=== PATIENT | female | born 1930 | race Caucasian/White ===

== ENCOUNTER 2018-02-09 12:59 | Inpatient (IN) | payer MEDICARE, OTHER ==
[~2018-02-09] VITALS: Ht 160 cm; Wt 80.3 kg
[2018-02-09] MEDS ORDERED: ASPIR 8181 MG PO (13:33)
[2018-02-09] MEDS ORDERED: ZANTAC 150MG T150 MG PO (13:36)
[2018-02-09] MEDS ORDERED: LIPITOR10 MG PO (13:37)
[2018-02-09] MEDS ORDERED: LASIX 40 MG TAB40 M2 PO (13:37)
[2018-02-09] MEDS ORDERED: SYNTHROID112 MC1 PO (13:38)
[2018-02-09] MEDS ORDERED: COZAAR 25 MG TA25 M1 PO (13:38)
[2018-02-09] MEDS ORDERED: TOPROL XL100 MG PO (13:39)
[2018-02-09] MEDS ORDERED: KLOR-CON 1010 MEQ PO (13:39)
[2018-02-09] MEDS ORDERED: XARELTO15 MG PO (13:40)
[2018-02-09 14:42] VITALS: BP 154/59
--- NOTE | 2018-02-09 19:27 | NUR ---
PATIENT ADMITTED TO UNIT FROM [facility], PATIENT ALERT/ORIENTED, UP WITH STANDBY ASSIST, NO COMPLAINTS OF PAIN THIS SHIFT, ORIENTED TO UNIT/REHAB PROCEDURES, ALL QUESTIONS ANSWERED AND PLAN OF CARE INITITATED
[2018-02-09 20:00] VITALS: BP 114/45
--- NOTE | 2018-02-10 05:17 | NUR ---
ASSUMED PT CARE AT 1930. PT ALERT AND ORIENTED X4, POLITE AND COOPERATIVE WITH CARES. PT UP WITH MIN ASSIST WITH GAIT BELT TO TOILET TO VOID X2. PT WITH SLIGHT LEFT SIDE WEAKNESS. PER PT HER LEFT THUMB IS NUMB BUT IS IMPROVING. PT DENIES PAIN. USES CALL LIGHT APPROPRIATELY. CALL LIGHT AND FREQUENTLY USED ITEMS WITHIN REACH. HOURLY ROUNDING IN PROGRESS, WILL CONTINUE TO MONITOR.
[2018-02-10 05:19] LABS: HEMATOCRIT 42.7 % (37.0-47.0); MCH 32.1 pg (26.0-34.0); MCHC 32.9 g/dL (28.0-37.0); MCV 97.7 fL (80.0-100.0); MPV 10.4 fl. (7.2-11.1); RBC 4.37 mil/uL (4.20-5.00); RDW-CV 13.2 % (10.5-14.5); WBC 8.4 thou/uL (4.0-11.0)
[2018-02-10 05:29] LABS: CALCIUM 8.9 mg/dL (8.5-10.1); CREATININE 1.2 mg/dL (0.6-1.3); POTASSIUM 4.4 mmol/L (3.5-5.1)
[2018-02-10 08:13] VITALS: BP 140/55
--- NOTE | 2018-02-10 12:59 | NUR ---
Nutrition: Pt admitted to rehab s/p CVA. H/o DM, afib, HF. Wt: 173#. Eating 100% Heart Healthy diet. Meds/labs noted. Low nutrition risk. Will follow weekly.
--- NOTE | 2018-02-10 15:35 | NUR ---
ASSUMED CARE AT 0730. ALERT ORIENTED PLEASANT COOPERATIVE. HX OF CVA L SIDE WEAKNESS VERY MINIMAL. TRANSFERS WITH GAIT BELT WALKER AND AMBULATES TO BR TO VOID AND HAD A BM ABLE TO DO HYGEINE AND CLOTHING ADJUSTMENTS USING CALL LIGHT APPROPRIATELY FOR ASSIST. FEEDS SELF APPETITE GOOD TAKES MEDS WITHOUT DIFFICULTY. DENIES PAIN OR CONCERNS. PARTICIPATING IN THERAPIES THROUGHOUT THE DAY.
--- NOTE | 2018-02-10 17:00 | NUR ---
SW met with pt to complete initial assessment, introduce self, and SW role on inpt rehab unit. Pt alert and oriented. Pt lives at home alone with a grandaughter who lives nearby. Pt has a walker and a cane. Pt does not have any history of services. Pt PCP Dr Renan Costa. SW to continue to follow to assist with safe dc planning.
[2018-02-10 19:00] VITALS: BP 123/59
--- NOTE | 2018-02-11 05:16 | NUR ---
ASSUMED PT CARE AT 1930. PT ALERT AND ORIENTED X4, POLITE AND COOPERATIVE WITH CARES. PT SITTING UP IN RECLINER TALKING TO VISITORS AT SHIFT CHANGE. HX OF CVA L SIDE WEAKNESS. MINIMAL WEAKNESS. DENIES PAIN. PT UP WITH GAIT BELT AND WALKER, AMBULATES TO BATHROOM TO VOID WITHOUT DIFFICULTY. PT DOES ALL OWN CARES AND CLOTHING ADJUSTMENTS. PT SLEPT WELL OVERNIGHT, UP TWICE TO VOID. PT FAMILY AT DESK INQUIRING ABOUT SNACKS FOR PT. SNACKS OFFERED PT SEVERAL TIMES BUT SHE DECLINED. USES CALL LIGHT APPROPRIATELY. CALL LIGHT AND FREQUENTLY USED ITEMS WITHIN REACH. HOURLY ROUNDING IN PROGRESS, WILL CONTINUE TO MONITOR.
[2018-02-11 08:02] VITALS: BP 129/49
[2018-02-11 09:12] VITALS: BP 129/49
--- NOTE | 2018-02-11 18:00 | NUR ---
ASSUMED CARE AT 0730 PATIENT ALERT/ORIENTED, NO COMPLAINTS OF PAIN THIS SHIFT, UP WITH ASSIST OF ONE AND WALKER/GAIT BELT, PARTICIPATED IN ALL THERPAIES TODAY, TO DINING ROOM FOR MEALS, BED/CHAIR ALARMS IN PLACE, CALL LIGHT IN REACH, HOURLY ROUNDING COMPLETED.
[2018-02-11 20:00] VITALS: BP 118/59
--- NOTE | 2018-02-12 07:31 | NUR ---
Alert and oriented x 4. She has no deficit observed, except some generalized weakness/fatigue. Pulses are equal and sales executive insurance strength equal bilat. No edema observed. Vitals are stable and lungs clear to ausclutation. She walks well with stand by assist and walker to the bathroom. She voided x 2. She has slept well.
[2018-02-12 08:05] VITALS: BP 136/58
--- NOTE | 2018-02-12 16:47 | NUR ---
ASSUMED CARE AT 0730 PATIENT ALERT/ORIENTED, NO COMPLAINTS OF PAIN THIS SHIFT, UP WITH ASSIST OF ONE AND WALKER/GAIT BELT. TO DINING ROOM FOR MEALS. FAMILY FRIENDS VISITING TODAY, BED/CHAIR ALARMS IN PLACE, CALL LIGHT IN REACH, HOURLY ROUNDING COMPLETED.
[2018-02-12 19:54] VITALS: BP 144/45
--- NOTE | 2018-02-13 04:48 | NUR ---
Alert and oriented x 4. Up with min assist with gaitbelt and walker. once she is up she is supervisionwith ambulation. She does say she has some slight weakness in her left hand due to CVA. Vitals are stable, lungs are clear. She denies pain or discomfort. She has slept well.
[2018-02-13 07:31] VITALS: BP 121/59
--- NOTE | 2018-02-13 14:45 | NUR ---
ASSUMED CARE AT 0730. ALERT ORIENTED PLEASANT COOPERATIVE. HX OF CVA L SIDE WEAKNESS. TRANSFERS WITH SBA G BELT WALKER AND AMBULATES TO BR ABLE TO DO HYGEINE AND CLOTHING ADJUSTMENTS. USING CALL LIGHT APPROPRIATELY FOR ASSIST. FEEDS SELF AND TAKES MEDS WITHOUT DIFFICULTY. DENIES PAIN OR CONCERNS. PARTICPATING IN THERAPIES TODAY TO DR FOR MEALS. MOVED TO ROOM 330 WITH BELONGINGS. ORIENTED TO ROOM AND CALL LIGHT.
[2018-02-13 20:00] VITALS: BP 128/61
--- NOTE | 2018-02-14 06:13 | NUR ---
ASSUMED CARES AT 1920. ALERT AND ORIENTED. PLEASANT. DENIED ANY NEED FOR PAIN MEDS. TAKES PILLS WHOLE WITHOUT ISSUES. SBA WITH GAIT BELT AND WALKER. UP TO BATHROOM. DOES OWN CARES. SLEPT WELL. NO COMPLAINTS. CALL LIGHT IN REACH.
[2018-02-14 07:54] VITALS: BP 119/57
--- NOTE | 2018-02-14 13:59 | PLAN ---
[address] [address] REHAB UNIT PLAN OF CARE Name: DEANNAEL Ramos Room: [address] IN .R.#: [id number] Admission: 02/09/18 Attend Phys: Sharon Torres DO Discharge: Date of : 34 Report #: [id number] THIS REPORT FOR: //name// CC: Sharon Costa DATE OF SERVICE: 02/10/2018 The patient presented from [facility] on 02/07/2018 with weakness on the left side. The patient's previous level of function was modified independent to independent. Current level of function is minimal assist. The patient's estimated length of stay is 12-14 days. DISCHARGE DISPOSITION IS TO HOME REHABILITATION PROGNOSIS: Good. MEDICAL PROGNOSIS: Good. PLAN: PT will see the patient 60-90 minutes per day for 5 days a week for ambulation, balance and coordination. OT will see the patient 60-90 minutes per day for 5 days a week for upper extremity strength, balance, coordination, bathing, dressing and toileting. Speech Language Pathology will see the patient 30-90 minutes per day for 5 days a week. This is an overall plan of care. It may change and will be updated as needed. <ELECTRONICALLY SIGNED> By: Sharon Torres DO 02/14/18 1359 0950 0030Kelanu Torres DO /jj
--- NOTE | 2018-02-14 14:30 | NUR ---
ASSUMED CARE AT 0730. ALERT ORIENTED PLEASANT COOPERATIVE. HX OF CVA L WEAKNESS. TRANSFERS WITH SBA G BELT WALKER AND AMBULATES TO BR TO VOID ABLE TO DO HYGEINE AND CLOTHING ADJUSTMENTS. FEEDS SELF AND TAKES MEDS WITHOUT DIFFICULTY. DENIES PAIN HAS SOME NECK DISCOMFORT WHICH ISNT NEW AND DECLINED OFFER OF TYLENOL THIS A.M. PARTICIPATING IN THERAPIES THROUGHOUT THE DAY. USES CALL LIGHT APPROPRIATELY. TO FOR MEALS.
[2018-02-14 19:59] VITALS: BP 136/59
[2018-02-15] VITALS (11 sets, daily range): BP systolic 113–176; BP diastolic 48–71
[2018-02-15 04:46] LABS: HEMATOCRIT 39.7 % (37.0-47.0); HEMOGLOBIN 13.2 gm/dL (12.0-15.0); MCH 32.4 pg (26.0-34.0); MCHC 33.4 g/dL (28.0-37.0); MPV 10.9 fl. (7.2-11.1); RBC 4.09 mil/uL (4.20-5.00); RDW-CV 13.3 % (10.5-14.5); WBC 7.8 thou/uL (4.0-11.0)
--- NOTE | 2018-02-15 05:03 | NUR ---
ASSUMED CARES AT 1920. ALERT AND ORIENTED. PLEASANT. DENIED ANY NEED FOR PAIN MEDS. SBA WITH GAIT BELT AND WALKER. UP TO BATHROOM. DOES OWN CARES AND DRESSING. SLEPT WELL. NO COMPLAINTS. CALL LIGHT IN REACH.
[2018-02-15 05:11] LABS: CREATININE 1.3 mg/dL (0.6-1.3); POTASSIUM 4.4 mmol/L (3.5-5.1); TOTAL BILIRUBIN 0.6 mg/dL (<0.1-1.0); TOTAL PROTEIN 6.6 g/dL (6.4-8.2)
[2018-02-15 08:57] LABS: HEMOGLOBIN 15.1 gm/dL (12.0-15.0); MCH 32.4 pg (26.0-34.0); MCHC 33.6 g/dL (28.0-37.0); MCV 96.4 fL (80.0-100.0); MPV 10.7 fl. (7.2-11.1); RBC 4.67 mil/uL (4.20-5.00); RDW-CV 13.3 % (10.5-14.5); WBC 8.7 thou/uL (4.0-11.0)
[2018-02-15 09:07] LABS: APTT 42.7 Seconds (25.0-31.3); INR 1.3; PROTIME 12.8 Seconds (9.20-11.50)
[2018-02-15 09:10] LABS: CALCIUM 9.3 mg/dL (8.5-10.1); CREATININE 1.3 mg/dL (0.6-1.3); POTASSIUM 4.3 mmol/L (3.5-5.1)
[2018-02-15 09:15] LABS: ALBUMIN 3.5 g/dL (3.4-5.0); TOTAL BILIRUBIN 0.9 mg/dL (<0.1-1.0); TOTAL PROTEIN 7.7 g/dL (6.4-8.2)
[2018-02-15 11:04] LABS: URINE BILIRUBIN NEGATIVE (Negative); URINE BLOOD 1+ (Negative); URINE CLARITY CLEAR; URINE COLOR YELLOW; URINE GLUCOSE-RANDOM NEGATIVE (Negative); URINE KETONES NEGATIVE (Negative); URINE LEUKOCYTES-REFLEX NEGATIVE (Negative); URINE NITRITE-REFLEX NEGATIVE (Negative); URINE PROTEIN NEGATIVE (Negative); URINE SPECIFIC GRAVITY <= 1.005 (1.005-1.030); URINE UROBILINOGEN 0.2 E.U./dl (0.2-1.0)
--- NOTE | 2018-02-15 15:11 | EKG ---
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: : 1930 Requested By: Isaac Delgadillo Order Number: [id number] Maria Ines MD: Padilla Adames Measurements Intervals [place] Rate: 68 P: MN: QRS: 65 QRSD: 107 T: 0 QT: 430 QTc: 458 Interpretive Statements Atrial fibrillation with ventricular paced beat Minimal ST depression, diffuse leads No previous ECG available for comparison Electronically Signed On 02-15-2018 15:11:27 GED INSTRUCTOR by Padilla Adames [email or web address] <ELECTRONICALLY SIGNED> By: Padilla Adames MD, [facility] 02/15/18 1511 1034 1034 Padilla Adames MD, FACC /EPI
--- NOTE | 2018-02-15 16:11 | NUR ---
Pt was preparing to take a shower and participate in OT during timing of rounds after team. Med student Eloy spoke with pt dtr Yeni 532 to review team conference and plan for pt to remain on rehab at least another week with team to reassess pt length of stay during team conference next Tuesday. SW to follow to discuss more with pt and pt dtr and continue to follow to assist with safe dc planning.
--- NOTE | 2018-02-15 19:35 | NUR ---
ASSUMED CARE AT 0730 PATIENT ALERT/ORIENTED, NO COMPLAINTS OF PAIN, AT 0820 PATIENT REPORTED NUMBNESS TO LEFT SIDE OF FACE, LEFT ARM/LEG. STROKE PROTOCOL INITIATED AND ALL TEST CAME BACK NEGATIVE, NEUROLOGY CONSULTED AND THEY FELT IT WAS RESIDUAL FROM ORIGINAL STROKE, PATIENT MONITORED THROUGHOUT MORNING AND FEELING BETTER AND PARTICIPATED WITH THERAPY THIS AFTERNOON. PATIENT UP WITH STANDBY AND WALKER/GAIT BELT, HOURLY ROUNDING COMPLETED, BED/CHAIR ALARMS IN PLACE, TO DINING ROOM FOR MEALS. CALL LIGHT IN REACH.
--- NOTE | 2018-02-16 05:32 | NUR ---
ASSUMED CARES AT 1920. ALERT AND ORIENTED. PLEASANT. PT DENIES ANY FURTHER ISSUES FACIAL NUMBNESS OR WEAKNESS HAD EARLIER IN AM. FEELING BETTER. TOOK PILLS WHOLE WITHOUT ISSUES. HAD NECK PAIN BUT REFUSES PAIN MEDS. SBA WITH GAIT BELT AND WALKER. UP TO BATHROOM. DOES OWN CARES. SLEPT WELL. USING CALL LIGHT APPROPRIATELY.
[2018-02-16 09:35] VITALS: BP 126/63
[2018-02-16 13:31] LABS: SQUAMOUS 0-3 Few /LPF (0-3); URINE RBC 3-10 Few /HPF (0-2); URINE WBC-REFLEX 0-5 Rare /HPF (0-5)
--- NOTE | 2018-02-16 16:08 | NUR ---
SW followed up with pt to review team conference and plan to reteam. Pt in agreement with plan. SW followed up with pt dtr Yeni at [phone] and reviewed team conference summary again and provided contact info if pt dtr ever has any questions or concerns. SW to continue to follow to assist with safe dc planning.
[2018-02-16 20:23] VITALS: BP 138/59
--- NOTE | 2018-02-17 00:36 | NUR ---
ASSUMED CARE AT 1930. PATIENT RESTING IN RECLINER, BUT FOUND WALKING IN ROOM. REINFORCED ORDERS OF UP WITH ASSIST FOR SAFETY CONCERNS. WATCHING TV UNTIL AROUND 2200. UP WITH SBA, GAIT BELT, WALKER. INTO BED EASILY. TURNS SELF. TAKES PILLS WHOLE WITH WATER. SOMETIMES HAS WORD SEARCH ISSUES, BUT MAKES NEEDS KNOWN. DENIES PAIN. HOURLY ROUNDDS CONTINUE. BED ALARM ON. CALL LITE IN REACH.
--- NOTE | 2018-02-17 05:25 | NUR ---
SLEPT MOST OF THE NIGHT. UP TO VOID PER TOILET. UP WITH GAIT BELT, WALKER. NO C/O PAIN. HOURLY ROUNDS CONTINUE. CALL LITE IN REACH. SLEEPING ON REGULAR MATTRESS IN ROOM 330.
[2018-02-17 08:13] VITALS: BP 147/84
--- NOTE | 2018-02-17 18:33 | NUR ---
ASSUMED CARE AT 0730 PATIENT ALERT/ORIENTED, NO COMPLAINTS OF PAIN THIS SHIFT UP WITH ASSIST OF ONE AND WALKER/GAIT BELT, HOURLY ROUNDING COMPLETED, BED/CHAIR ALARMS IN PLACE, CALL LIGHT IN REACH, PARTICIPATED IN ALL THERAPIES. TO DINING ROOM FOR MEALS
[2018-02-17 20:22] VITALS: BP 146/50
--- NOTE | 2018-02-18 01:49 | NUR ---
ASSUMED CARE @ 1944-02/17-TUESDAY.SITS IN BEDSIDE CHAIR @ THIS TIME WATCHING TV.CHAIR ALARM ON ALREADY @ 1944.SBA FOR ALL TRansfers & TOILETING.ON HOURLY ROUNDS.PHYSICIAN OBSTETRICIAN DOING ODD HOUR ROUNDS.TURNS SELF @ NIGHT.
--- NOTE | 2018-02-18 05:27 | NUR ---
SLEEPING SINCE 2200 & SLEPT GOOD ALL NIGHT.BRP W/ SBA X3.TOOK ALL ORANGE SHERBET HS SNACK.
[2018-02-18 07:30] VITALS: BP 152/62
--- NOTE | 2018-02-18 16:56 | NUR ---
ASSUMED CARE AT 0730. ALERT ORIENTED PLEASANT COOPERATIVE. HX OF CVA. TRANS FERRED WITH SBA G BELT WALKER AND AMBULATES TO BR TO VOID ABLE TO DO HYGEINE AND CLOTHING ADJUSTMENTS. DENIES PAIN OR CONCERNS. PARTICIPATING IN THERAPIES. USES CALL LIGHT FOR ASSISTANCE. SITTING UP IN CHAIR WORKING WORD SEARCHES. FEEDS SELF AND TAKES MEDS WITHOUT DIFFICULTY.
[2018-02-18 20:00] VITALS: BP 126/57
--- NOTE | 2018-02-19 02:33 | NUR ---
ASSUMED CARE @ 1939-02/18-SAT.SITS IN BSCHAIR WATCHING TV.CHAIR ALARM ALREADY ON @ 1939.SBA FOR TOILETING & TRANSFERS.DOES NOT USED WALKER.GAIT-STEADY. BED ALARM PUT ON @ 2109.TURNS SELF @ NIGHT.ON HOURLY ROUNDS.SUPERVISOR PUMPING STATION DOING ODD HOUR ROUNDS.
[2018-02-19 07:30] VITALS: BP 125/47
--- NOTE | 2018-02-19 07:52 | NUR ---
SLEEPING SINCE 2200 & SLEPT GOOD ALL NIGHT.TOOK ALL ORANGE SHERBET HS SNACK.BRP W/ SBA X3.DOES NOT USED WALKER.STEADY.
--- NOTE | 2018-02-19 16:48 | NUR ---
ASSUMED CARE AT 0730. ALERT ORIENTED PLEASANT COOPERATIVE. HX OF CVA. TRANSFERS WITH SBA G BELT AMBULATES TO BR TO VOID AND HAD A BM ABLE TO DO HYGEINE AND CLOTHING ADJUSTMENTS. DENIES PAIN OR REQUESTS. USES CALL LIGHT APPROPRIATELY FOR ASSIST. FEEDS SELF APPETITE GOOD TAKES MEDS WITHOUT DIFFICULTY. HAD VISITORS FAMILY TODAY.
[2018-02-19 20:00] VITALS: BP 133/64
--- NOTE | 2018-02-20 01:12 | NUR ---
ASSUMED CARE @ 1929-02/19-TUESDAY.SITS IN BSCHAIR PLAYING [employer] GAME.CHAIR ALARM ALREADY ON @ 1929.ON HOURLY ROUNDS.NIGHT AUDITOR DOING ODD HOUR ROUNDS.TURNS SELF @ NIGHT.DOES NOT USE WALKER WHEN AMBULATING.STEADY-GAIT.
--- NOTE | 2018-02-20 05:38 | NUR ---
SLEEPING SINCE 2200 & SLEPT GOOD ALL NIGHT.BRP X2.DOES NOT USE WALKER.STEADY. REFUSED HS SNACK.
[2018-02-20 07:44] VITALS: BP 144/58
--- NOTE | 2018-02-20 18:04 | NUR ---
ASSUMED CARE AT 0730. ALERT AND ORIENTED PLEASANT COOPERATIVE. HX OF CVA. TRANSFERS WITH SBA G BELT AND AMBULATES TO BR TO VOID ABLE TO DO HYGEINE AND CLOTHING ADJUSTMENTS. FEEDS SELF AND TAKES MEDS WITHOUT DIFFICULTY. PT. DID GET UP X 1 WITHOUT ASSIST IN ROOM. INSTRUCTED TO CALL FOR ASSISTANCE. PARTICIPATING IN THERAPIES THROUGHOUT THE DAY. CHAIR ALARM ON CHAIR.
[2018-02-20 20:00] VITALS: BP 158/61
--- NOTE | 2018-02-21 00:29 | NUR ---
ASSUMED CARE AT 1930. PATIENT RESTING IN RECLINER, CONVERSING WITH VISITOR. CHAIR ALARM ON, BUT PATIENT KNOWS HOW TO TURN OFF ALARM. INSTRUCTED TO CALL BEFORE GETTING UP, AND REINFORCED REHAB SAFETY MEASURES. UP WITH SBA, GAIT BELT. VOIDS PER TOILET, DOES OWN CARES. TAKES PILLS WHOLE WITH WATER. NO C/O PAIN. HOURLY ROUNDS CONTINUE. CALL LITE IN REACH.
[2018-02-21 04:22] LABS: HEMATOCRIT 39.1 % (37.0-47.0); MCH 32.2 pg (26.0-34.0); MCHC 33.3 g/dL (28.0-37.0); MCV 96.7 fL (80.0-100.0); MPV 11.1 fl. (7.2-11.1); RBC 4.05 mil/uL (4.20-5.00); RDW-CV 12.8 % (10.5-14.5); WBC 8.7 thou/uL (4.0-11.0)
[2018-02-21 04:39] LABS: CALCIUM 8.9 mg/dL (8.5-10.1); MAGNESIUM 1.9 mg/dL (1.8-2.4); POTASSIUM 4.8 mmol/L (3.5-5.1)
--- NOTE | 2018-02-21 05:34 | NUR ---
SLEPT MOST OF THE NIGHT. UP TO VOID PER TOILET TWICE THIS SHIFT. UP WITH SBA, GAIT BELT, AND CANE. NO C/O PAIN. USED CALL LITE APPROPRIATELY TONIGHT. HOURLY ROUNDS CONTINUE. CALL LITE IN REACH. SLEEPING IN REGULAR BED.
[2018-02-21 08:29] VITALS: BP 161/59
--- NOTE | 2018-02-21 14:28 | NUR ---
SUN called and spoke with pt dtr Yeni in preparation for team conference on Tuesday. Pt dtr expressed she felt pt was improving and she said she and pt look forward to pt dc plan...pt and pt family said they are hoping for pt to be able to dc this week. Pt dtr also wondered about pt cane needs and not sure yet whether they want to rock picker a cane on their own or if they would want SW to arrange an order for one. SW to continue to follow to assist with safe dc planning.
--- NOTE | 2018-02-21 18:39 | NUR ---
PT ALERT AND ORIENTATED AND CALLS FOR ASSIST WITH AMBULATION NEEDS. PT AMBULATES WITH SBA AND USE OF CANE WITH GAITBELT ON. PT DENIES PAIN.PT VOIDS WELL AND HAD MOD BM THIS MORNING. PT HOPES TO GO HOME SOON.
[2018-02-21 20:00] VITALS: BP 152/58
--- NOTE | 2018-02-21 21:25 | NUR ---
SITTING UP IN A CHAIR WATCHING TV. DENIES DISCOMFORT. AMBULATED TO THE BATHROOM WITH SBA, GAITBELT, CANE. TOOK MEDICATION WHOLE WITH WATER.
--- NOTE | 2018-02-22 05:22 | NUR ---
RESTED QUIETLY. UP X ONE DURING THE NIGHT TO THE BATHROOM TO VOID. NO COMPLAINTS VOICED. HOURLY ROUNDING IN PROGRESS.
[2018-02-22 08:20] VITALS: BP 174/62
--- NOTE | 2018-02-22 16:15 | NUR ---
SUN and Dr Torres met with pt and pt dtr to review team conference summary and plan for pt to dc home alone on Tuesday with pt family to check on pt frequently and with HH services to follow. Pt and pt dtr in agreement with plan. SW discussed DME recommendation of single point cane, pt and pt dtr confirmed pt acutally does have canes already at home. Pt dtr reviewing HH choices and will update SUN on pt/family preference on HH agency. SW to continue to follow to assist with safe dc planning.
[2018-02-22 20:00] VITALS: BP 146/56
--- NOTE | 2018-02-23 00:53 | NUR ---
ASSUMED CARE AT 1930. PATIENT MOD I IN ROOM. UP WITH CANE. VOIDS PER TOILET. TAKES PILLS WHOLE WITH WATER. TURNS SELF IN BED. NO C/O PAIN. HOURLY ROUNDS CONTINUE. CALL LITE IN REACH.
--- NOTE | 2018-02-23 05:59 | NUR ---
SLEPT AFTER ABOUT 2200. UP TO VOID ONCE. ON MOD I IN ROOM. CALL LITE IN REACH. HOURLY ROUNDS CONTINUE. NO C/O PAIN. NO UNSAFE BEHAVIORS NOTED.
[2018-02-23 07:00] VITALS: BP 153/59
--- NOTE | 2018-02-23 16:23 | NUR ---
SW spoke with pt about dc plans for tomorrow and also called pt dtr Yeni to discuss dc plans and HH preference. Pt and pt dtr preference for [facility]; SW to faxed referral and final orders and med list upon dc day. Pt has single point cane and a walker if needed. SW to continue to follow to assist with finalizing safe dc plan.
--- NOTE | 2018-02-23 17:23 | CON ---
[address] [address] CONSULTATION Name: NAEL MORAN Room: [address] IN M.R.#: [id number] Admission: 02/09/18 Attend Phys: Sharon Torres DO Discharge: Date of : 32 Report #: [id number] THIS REPORT FOR: //name// CC: Sharon Costa HISTORY OF PRESENT ILLNESS: The patient is an 88-year-old female who states that she was home by herself when she experienced paresthesias of the left hand. She tried to reach her daughter, but when she could not, she called 911 and 3 driver education instructor came to her rescue. She was taken to [facility] and because she has a pacemaker, could not have an MRI of her head. She had a CT scan, no acute stroke was found, but she was diagnosed with a lacunar infarct because she had some garbled speech and left-sided weakness and tingling. The patient tells me that she lives at home by herself. At one point, she told me that she was concerned about going home by herself and living alone and later in the conversation, she told me that she was comfortable going home by herself. The patient had been doing well here in rehab. She has been here since just before the first of the year, but this morning noticed some tingling in her left thumb and was concerned about this. She has had a CT scan of her head and this shows no acute findings. PAST MEDICAL HISTORY: Diabetes, heart disease, hypertension, AFib, hypothyroidism, stroke. PAST SURGICAL HISTORY: Breast biopsy, hysterectomy, pacemaker placement, Mohs surgery. MEDICATIONS: Aspirin 81 mg daily, atorvastatin 10 mg daily, famotidine 20 mg at bedtime, levothyroxine 112 mcg daily, losartan 100 mg daily, metoprolol XL 50 mg daily, Xarelto 15 mg daily. ALLERGIES: PENICILLIN, CAFFEINE, PAROXETINE and BUSPIRONE. PHYSICAL EXAMINATION: VITAL SIGNS: Temperature 36.3, pulse rate 65, respiratory rate 17, blood pressure 141/59. NEUROLOGIC: Cranial nerves 2-12 are grossly intact with the exception of mild flattening of the left nasolabial fold. The patient also has some slurred speech of which she seems unaware. Motor exam demonstrates a mild left hemiparesis. Reflexes are symmetrical throughout. Plantar responses were not tested. Coordination reveals intact [id number]. LABORATORY DATA: Hematology: White blood cell count 8.7; hemoglobin 15.1; hematocrit 45; platelet count 242,000. INR 1.3. Urinalysis, 1+ blood. Chemistry: Sodium 137, potassium 4.3, chloride 101, carbon dioxide 30, BUN 43, creatinine 1.3, GFR 39, glucose 153, calcium 9.3, hemoglobin A1c 0.9. AST 17, [place] [id number] CONSULTATION Name: NAEL MORAN Room: [address] [facility].#: [id number] Admission: 02/09/18 Attend Phys: Sharon Torres, Discharge: Date of : 32 Report #: [id number] ALT 14, alkaline phosphatase 115, total protein 7.7, albumin 3.5. IMPRESSION: I tried to reassure the patient and explained to her that from time to time she may have some intermittent paresthesias. I asked her several times about her speech. She feels it is normal; however, she does have some slurred speech. I reviewed her records from [facility], this same slurred speech was noted then. I do not think the patient is having another stroke. I think that she can continue aspirin and Xarelto. If you have any further questions, please do not hesitate to contact the Neurology Service. <ELECTRONICALLY SIGNED> By: Yi Marrero DO 02/23/18 1723 1125 [id number] Marrero DO /nt
--- NOTE | 2018-02-23 17:48 | NUR ---
AM ASSESSMENT AND VITAL SIGNS COMPLETED DOCUMENTED. PT COMPLETED ALL THERAPY SESSIONS SCHEDULED AND HAS BEEN MOD I IN HER ROOM WITHOUT INCIDENCE. PT AMBULATES TO THE DINING ROOM WITH A CANE, STEADY GAIT. PT IS ANTICIPATING GOING HOME TOMMORROW.
[2018-02-23 20:30] VITALS: BP 106/55
[2018-02-24 00:59] VITALS: BP 106/55
--- NOTE | 2018-02-24 05:17 | NUR ---
ASSUMED CARE AT 1920. ALERT AND ORIENTED. PLEASANT. HAS NECK DISCOMFORT BUT REFUSED PAIN MEDS. TAKES PILLS WHOLE WITHOUT ISSUES. FERDINAND IN RM WITH CANE. UP TO BATHROOM. DOES OWN CARES. SLEPT WELL. NO ISSUES OVERNIGHT. CALL LIGHT IN REACH.
[2018-02-24 08:00] VITALS: BP 143/65
[2018-02-24 09:40] VITALS: BP 106/55
--- NOTE | 2018-02-24 09:42 | NUR ---
Pt to dc home today with family support and HH services to follow. SW faxed referral info, final order, and med list to pt/family preference of [facility]. [phone] fax [phone].
--- NOTE | 2018-02-24 18:17 | NUR ---
PT AND HER DAUGHTER HAVE BEEN PROVIDED WITH DISCHARGE INSTRUCTIONS, PRINTED COPY PROVIDED FOR HOME REFERENCE. PT AND HER BELONGINGS TRANSPORTED TO THE EXIT, DISCHARGED HOME IN STABLE CONDITION.
== END 2018-02-24 18:19 | disposition home health service (06) | DRG 65 ==
LOC: M.REH 12:59
PROVIDERS: Internal Medicine; ADMIT Physical Medicine & Rehabilitation
DX: I63.9 Cerebral infarction, unspecified (principal); I50.42 Chronic combined systolic (congestive) and diastolic (congestive) heart failure; I69.334 Monoplegia of upper limb following cerebral infarction affecting left non-dominant side; I48.91 Unspecified atrial fibrillation; Z60.2 Problems related to living alone; G83.24 Monoplegia of upper limb affecting left nondominant side; E03.9 Hypothyroidism, unspecified; I11.0 Hypertensive heart disease with heart failure; E11.9 Type 2 diabetes mellitus without complications; I49.5 Sick sinus syndrome; Z95.0 Presence of cardiac pacemaker; Z85.820 Personal history of malignant melanoma of skin; Z79.899 Other long term (current) drug therapy; Z79.82 Long term (current) use of aspirin; Z88.8 Allergy status to other drugs, medicaments and biological substances; Z88.0 Allergy status to penicillin; Z79.01 Long term (current) use of anticoagulants; Z90.710 Acquired absence of both cervix and uterus